=== PATIENT | male | born 1985 | race Caucasian/White ===

== ENCOUNTER 2019-03-04 21:00 | Inpatient (IN) | payer OTHER ==
[~2019-03-04] VITALS: Ht 172.7 cm; Wt 77.1 kg
--- NOTE | ~2019-03-04 | PROC ---
[facility] [address] [place] [address] PROCEDURE REPORT Name: TY GREENWOOD Room: [address] IN M.R.#: [id number] Admission: 03/04/19 Attend Phys: Babatunde Quiñones Discharge: 03/06/19 Date of : 87 Report #: [id number] THIS REPORT FOR: //name// For GI report, please see the Provation report in Perceptive 7 content. By: 1455Medical Records Staff ISRAEL /FLO
[2019-03-04 21:07] VITALS: BP 120/79
[2019-03-04 21:47] LABS: ABSOLUTE BASOPHILS 0.1 thou/uL (0.0-0.2); ABSOLUTE EOSINOPHILS 0.3 thou/uL (0.0-0.7); ABSOLUTE LYMPHOCYTES 4.9 thou/uL (0.8-5.3); ABSOLUTE MONOCYTES 1.3 thou/uL (0.0-1.2); ABSOLUTE NEUTROPHILS 7.7 thou/uL (1.6-8.1); BASOPHILS 0.8 %; HEMATOCRIT 42.7 % (42.0-52.0); LYMPHOCYTES 34.3 %; MCH 32.6 pg (26.0-34.0); MCHC 35.2 g/dL (28.0-37.0); MCV 92.8 fL (80.0-100.0); MONOCYTES 9.2 %; MPV 8.9 fl. (7.2-11.1); NUCLEATED RBCS 0 /100WBC; PLATELET COUNT* 283 thou/uL (150-400); POLYS 53.7 %; RDW-CV 12.6 % (10.5-14.5); WBC 14.3 thou/uL (4.0-11.0)
[2019-03-04 21:49] LABS: CALCIUM 10.2 mg/dL (8.5-10.1); CREATININE 1.2 mg/dL (0.6-1.3); POTASSIUM 3.9 mmol/L (3.5-5.1)
[2019-03-04 21:52] LABS: PROTIME 10.2 Seconds (9.20-11.50)
[2019-03-04 22:00] LABS: ALBUMIN 4.2 g/dL (3.4-5.0); TOTAL BILIRUBIN 0.3 mg/dL (<0.1-1.0); TOTAL PROTEIN 7.9 g/dL (6.4-8.2)
[2019-03-04 23:34] LABS: URINE BILIRUBIN NEGATIVE (Negative); URINE BLOOD NEGATIVE (Negative); URINE CLARITY SL CLOUDY; URINE COLOR YELLOW; URINE GLUCOSE-RANDOM NEGATIVE (Negative); URINE KETONES NEGATIVE (Negative); URINE LEUKOCYTES-REFLEX NEGATIVE (Negative); URINE NITRITE-REFLEX NEGATIVE (Negative); URINE PROTEIN NEGATIVE (Negative); URINE SPECIFIC GRAVITY <= 1.005 (1.005-1.030); URINE UROBILINOGEN 0.2 E.U./dl (0.2-1.0)
[2019-03-04 23:39] VITALS: BP 120/79
[2019-03-05] VITALS: BP 113/67
--- NOTE | 2019-03-05 05:59 | NUR ---
PT ARRIVED AT MIDNIGHT FROM THE ER. ALERT AND ORIENTED, VSS RA. NPO FOR ABD US IN AM. IV FLUID RUNNING ORDERED. PRN MORPHINE GIVEN FOR PAIN PER PT REQUEST. AT BEDSIDE. WILL CONTINUE TO MONITOR.
[2019-03-05 09:30] LABS: ABSOLUTE BASOPHILS 0.1 thou/uL (0.0-0.2); ABSOLUTE EOSINOPHILS 0.3 thou/uL (0.0-0.7); ABSOLUTE LYMPHOCYTES 2.8 thou/uL (0.8-5.3); ABSOLUTE MONOCYTES 1.6 thou/uL (0.0-1.2); ABSOLUTE NEUTROPHILS 6.9 thou/uL (1.6-8.1); BASOPHILS 0.6 %; EOSINOPHILS 2.9 %; HEMATOCRIT 40.6 % (42.0-52.0); LYMPHOCYTES 24.3 %; MCHC 34.5 g/dL (28.0-37.0); MCV 92.8 fL (80.0-100.0); MONOCYTES 13.5 %; NUCLEATED RBCS 0 /100WBC; PLATELET COUNT* 277 thou/uL (150-400); POLYS 58.7 %; RBC 4.38 mil/uL (4.50-6.00); RDW-CV 13.1 % (10.5-14.5); WBC 11.7 thou/uL (4.0-11.0)
[2019-03-05 09:50] LABS: ALBUMIN 3.7 g/dL (3.4-5.0); ALKALINE PHOSPHATASE 80 U/L (46-116); AMYLASE 475 U/L (25-115); ANION GAP 11 mmol/L (7-16); BUN 14 mg/dL (7-18); CALCIUM 8.6 mg/dL (8.5-10.1); CHLORIDE 104 mmol/L (98-107); CHOLESTEROL 194 mg/dL (<200); CO2 26 mmol/L (21-32); GLUCOSE 88 mg/dL (70-99); HDL CHOLESTEROL 27 mg/dL (>40); LDL CHOLESTEROL 126 mg/dL (<100); POTASSIUM 3.8 mmol/L (3.5-5.1); SERUM ASSESSMENT Clear; SGOT 19 U/L (15-37); SGPT 22 U/L (30-65); SODIUM 141 mmol/L (136-145); TC:HDL 7.2 Ratio (Not establshd); TOTAL BILIRUBIN 0.4 mg/dL (<0.1-1.0); TOTAL PROTEIN 6.9 g/dL (6.4-8.2); TRIGLYCERIDE 208 mg/dL (<150); VLDL 42 mg/dL (<40)
--- NOTE | 2019-03-05 12:50 | NUR ---
ASSUMED PT CARE AT 0700, PT A&O X4, UP AD ANA, MED SURG STATUS. PT C/O PAIN 6/10 IN CHEST AND ABDOMEN, PAIN MEDS ADMINISTERED PRIOR TO THIS NURSES ARRIVAL. PT WENT FOR US OF ABDOMEN AND THEN DIRECTLY TO SURGERY FOR EGD PER DR SEGURA'S ORDERS, CONSENT SIGNED AND PT EDUCATED ON PROCEDURE. PT MOVED TO J&S D/T MED SURG STATUS ONCE RETURNED FROM PROCEDURE. ALL OF PATIENTS BELONGINGS WERE SENT WITH PT AND PTS . HOURLY ROUNDING COMPLETED.
[2019-03-05 13:11] VITALS: BP 116/66
--- NOTE | 2019-03-05 13:13 | NUR ---
PT ARRIVED TO UNIT ABOUT 1245 FROM TELE. VITALS STABLE, CHARTED. UP AD ANA. IV PATENT, INFUSING. SPOUSE IN ROOM. AGREE WITH PREVIOUS ASSESMENT. CALL LIGHT WITHIN REACH. WILL CONTINUE TO MONITOR.
--- NOTE | 2019-03-05 13:34 | EKG ---
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
[2019-03-05 16:00] VITALS: BP 125/72
--- NOTE | 2019-03-05 17:38 | NUR ---
PT RESTING SINCE LAST NOTE. UP AD ANA. IV PATENT. TOLERATING DIET. DENIED PAIN. MINIMAL NAUSEA. VITALS STABLE. CALL LIGHT WITHIN REACH WILL CONTINUE TO MONITOR.
[2019-03-05 19:45] VITALS: BP 121/69
--- NOTE | 2019-03-05 19:45 | NUR ---
SITTING IN BED WATCHING TV. IV FLUIDS INFUSING WITHOUT DIFFICULTY. CALL LIGHT WITHIN REACH.
[2019-03-06 05:04] LABS: ALBUMIN 3.5 g/dL (3.4-5.0); CALCIUM 8.9 mg/dL (8.5-10.1); POTASSIUM 4.1 mmol/L (3.5-5.1); TOTAL BILIRUBIN 0.1 mg/dL (<0.1-1.0); TOTAL PROTEIN 6.6 g/dL (6.4-8.2)
[2019-03-06 05:06] LABS: ABSOLUTE BASOPHILS 0.1 thou/uL (0.0-0.2); ABSOLUTE EOSINOPHILS 0.4 thou/uL (0.0-0.7); ABSOLUTE LYMPHOCYTES 3.5 thou/uL (0.8-5.3); ABSOLUTE MONOCYTES 1.4 thou/uL (0.0-1.2); ABSOLUTE NEUTROPHILS 4.7 thou/uL (1.6-8.1); BASOPHILS 0.7 %; EOSINOPHILS 4.2 %; HEMATOCRIT 39.6 % (42.0-52.0); HEMOGLOBIN 13.9 gm/dL (14.0-18.0); LYMPHOCYTES 34.6 %; MCH 32.7 pg (26.0-34.0); MCHC 35.1 g/dL (28.0-37.0); MCV 93.2 fL (80.0-100.0); MONOCYTES 14.1 %; MPV 9.1 fl. (7.2-11.1); NUCLEATED RBCS 0 /100WBC; PLATELET COUNT* 273 thou/uL (150-400); POLYS 46.4 %; RBC 4.25 mil/uL (4.50-6.00); RDW-CV 13.2 % (10.5-14.5); WBC 10.1 thou/uL (4.0-11.0)
--- NOTE | 2019-03-06 06:58 | NUR ---
TOOK A SHOWER LAST NIGHT. HAD A FEMALE VISITOR LAST NIGHT. TOOK PO BENADRYL FOR COMPLAINT OF GENERALIZED ITCHING. ALSO APPLIED HYDROCORTISONE TO LOWER LEGS. NO FURTHER COMPLAINT OF ITCHING. GIVEN MORPHINE AT BEDTIME FOR COMPLAINT OF EPIGASTRIC PAIN. NO FURTHER COMPLAINT OF PAIN. RESTED QUIETLY AFTERWARDS. HOURLY ROUNDING IN PROGRESS.
[2019-03-06 07:35] VITALS: BP 110/56
[2019-03-06] MEDS ORDERED: PEPCID40 MG PO (11:29)
[2019-03-06 11:30] VITALS: BP 110/56
[2019-03-06] MEDS ORDERED: PROTONIX40 M2 PO (11:30)
[2019-03-06 12:07] VITALS: BP 110/56
--- NOTE | 2019-03-06 12:08 | NUR ---
PT GIVEN DISCHHARGE INFORMATION AND CARE NOTES. PRESCRIOPTIONS CALLED INTO PHARMACY. IV REMOVED. PT BELONGINGS GATHERED. PT LEFT AMBULATORY WITH NURSING STAFF TO HOME. FALL RISK PRECAUTIONS IN PLACE. HOURLY ROUNDING COMPLETED.
--- NOTE | 2019-03-07 10:07 | PATH ---
[facility] [address] [place] [address] PATHOLOGY RPT PROCEDURE Name: CJ CARLOS Room: [address] IN M.R.#: [id number] Admission: 03/04/19 Date of : 87 Discharge: 03/06/19 Report #: [id number] Path Case #: [id number] [facility] Accession Number: [id number] . 01 Material submitted: . PART A: small bowel - SMALL BOWEL BIOPSY PART B: stomach - ANTRAL BIOPSY PART C: esophagus - ESOPHAGEAL BIOPSY AT 38CM . 01 Clinical history: . None provided . 02 Diagnosis: A. Small bowel biopsy (possible celiac): - Mild nonspecific active duodenitis, negative for granulomas, viral inclusions, significant intraepithelial lymphocytosis and dysplasia. See comment. . B. Antral biopsy: - Mild nonspecific chronic antral gastritis, negative for Helicobacter pylori organisms, granulomas and dysplasia. . C. Esophageal biopsy at 38 cm: - Benign esophageal and glandular/columnar types mucosa with severe chronic and active inflammation compatible with reflux, negative for goblet cells/diagnostic Lara's metaplasia, granulomas, viral inclusions and dysplasia. (MAXI:anthony; 03/06/2019) S 03/06/2019 1514 Local . 02 Comment: In the small bowel biopsy (A), there is some villous flattening seen in association with active inflammation and attributable to it, however, there is no significant intraepithelial lymphocytosis and therefore celiac disease is thought to be unlikely. (MAXI:anthony; 03/06/2019) . . Special stain on B: H. pylori immuno . 02 Electronically signed: . Jean Moore MD, Pathologist NPI- [id number] . 01 Gross description: . A. Received in formalin labeled "Cj Carlos, small bowel biopsy, possible celiac," are multiple segments of kirk soft tissue measuring 1.0 x 0.4 x 0.1 cm in aggregate dimensions. [place] [address] PATHOLOGY RPT PROCEDURE Name: CJ CARLOS Room: [address] IN [facility].#: [id number] Admission: 03/04/19 Date of : 87 Discharge: 03/06/19 Report #: [id number] Path Case #: [id number] entirely submitted in cassette A1. . B. Received in formalin labeled "Cj Carlos, antral biopsy for H. pylori for erosive duodenitis," are 2 segments of kirk soft tissue measuring 0.7 x 0.3 x 0.2 cm in aggregate dimensions and ranging from 0.3 to 0.4 cm in maximum dimension. The specimen is submitted entirely in cassette B1. . C. Received in formalin labeled "Cj Carlos, esophageal biopsy at 38 cm, possible Lara's," are 3 segments of kirk soft tissue measuring 0.6 x 0.3 x 0.1 cm in aggregate dimensions and ranging from 0.1 to 0.2 cm in maximum dimension. The specimen is submitted entirely in cassette C1. (TSD; 03/05/2019) TOB/TOB 03/05/2019 2000 Local . 02 Pathologist provided ICD-10: K29.80, K29.50, K20.9 . 02 CPT . 660828, 992672, 742775, X09168 Specimen Comment: A courtesy copy of this report has been sent to Specimen Comment: [phone], . Specimen Comment: Report sent to / DR MÉNDEZ Performed at: 01 [facility] [address] [place] [address] [address], [place], [place] [id number] MD Wilbert Sanchez MD Phone: [phone] Performed at: 02 [facility] [address], [place], [place] [id number] MD Jean Moore MD Phone: [phone]
[2019-03-07 22:06] LABS: IgG 870 mg/dL (700-1600)
[2019-03-08 07:35] LABS: ANA INTERPRETATION Positive (Negative)
--- NOTE | 2019-03-09 10:43 | CON ---
[facility] [address] [place] [address] CONSULTATION Name: TY GREENWOOD Room: [address] IN M.R.#: [id number] Admission: 03/04/19 Attend Phys: Babatunde Quiñones Discharge: 03/06/19 Date of : 87 Report #: [id number] THIS REPORT FOR: //name// CC: FAM physician/PCP Val Best MD DATE OF SERVICE: 03/05/2019 REFERRING PHYSICIAN: Val Best MD The patient has no primary care provider. REASON FOR CONSULTATION: Chest and abdominal pain. IMPRESSION: 1. Chest pain and epigastric pain with history of Lara's and chronic nonsteroidal use and chronic use of antacids -- evaluate for complicated reflux and plus or minus gastric or duodenal ulceration. 2. Elevated lipase of uncertain etiology with normal-appearing pancreas on CT scan, but the patient does relate a history of pancreatitis in the past -- abdominal ultrasound was negative for gallstones and sludge and the patient denies any history of alcohol use, family history of pancreatitis or family history of autoimmune disease or hyperlipidemia. 3. History of acute lymphoblastic leukemia, for which the patient underwent -- received a stem cell transplant back in 2012 at [facility] by Dr. Alessio Celestin for the same. 4. Chronic tobaccoism with the need to discontinue the same. RECOMMENDATIONS: 1. We will proceed with upper endoscopy and a small bowel biopsy today. I have discussed these plans with the patient as well and he is agreeable to the same. 2. If his upper endoscopy is negative for source of pancreatitis and as he does not have significant hyperlipidemia or evidence of autoimmune pancreatitis by laboratory testing, we will proceed with an endoscopic ultrasound as an outpatient at [facility] as with this where we have the proper equipment to do so. This would not be done for 4 weeks or so. 3. We will make further recommendations once we have his upper endoscopy today. HISTORY OF PRESENT ILLNESS: The patient is a 33-year-old white male with history of ALL, for which he underwent stem cell transplantation about 6 years ago at [facility]. He was diagnosed with ALL and received treatment for the same under the direction of Dr. Alessio Celestin. He has done well since that time. He has had some problems off and on since that time with abdominal pain and has undergone multiple upper and lower endoscopies, but he cannot give any details of the same. He does state that his told [place] [address] CONSULTATION Name: TY GREENWOOD Room: [address] IN [facility].#: [id number] Admission: 03/04/19 Attend Phys: Babatunde Quiñones Discharge: 03/06/19 Date of : 87 Report #: [id number] of Lara's esophagus with some inflammation noted with his last examination being done over a year and a half ago in [place]. He and his are just recently moved back to [facility] [facility]. They were in [place] for family issues. He denies any complaints of any dysphagia or odynophagia, but does have problem with chronic reflux, for which he takes Tums like candy. He is not taking any prescription medications for the same. He denies any nausea, vomiting, hematemesis, melena, or hematochezia. Denied any problem with his bowels or bowel frequency. His weight is going up and down over the last year or so. He is admitted to the hospital for further evaluation and treatment. He does take Advil on a regular basis and Tums as I mentioned above. ALLERGIES: None. MEDICATIONS: As above. PAST MEDICAL HISTORY: Remarkable for ALL with history of Lara's as well and multiple upper and lower endoscopies in the past. SOCIAL HISTORY: The patient is . He does smoke cigarettes. He does not drink alcohol, maybe once a week. FAMILY HISTORY: As above. PHYSICAL EXAMINATION: GENERAL: Pleasant 33-year-old gentleman, who is in no distress. CARDIOPULMONARY: Revealed a regular rate and rhythm. LUNGS: Clear. ABDOMEN: Soft and not particularly tender. No rebound or guarding noted. LABORATORY TEST: From admission revealed a white count of 14.3, hemoglobin 15.0, platelet count 283,000. His MCV is 92.8, RDW 12.6, and MCHC is 35.2. His sodium 141, potassium 3.9, chloride 103, bicarbonate is 29, BUN 20, creatinine 1.2. His GFR is 70. Total bilirubin 0.3, alkaline phosphatase is 94, AST 21, ALT 28, albumin 4.2. Troponins negative x 2. His lipase on admission was 1684 and today is 3754. IMAGING: CT scan of the abdomen and pelvis was reviewed and was largely unremarkable. His gallbladder was contracted without evidence for any stones. Pancreas looked normal. Abdominal ultrasound performed this morning revealed mild splenomegaly and a pancreatic head and body appeared unremarkable, tail not visualized secondary to overlying bowel gas. There is no evidence for any gallstones. Common duct is 4 mm. DISCUSSION: At the present time, the patient has had some problem with epigastric pain and does have serial laboratory evidence suggestive of [facility] [address] [place] [address] CONSULTATION Name: TY GREENWOOD Ankit Room: [address] IN [facility]#: [id number] Admission: 03/04/19 Attend Phys: Babatunde Quiñones Discharge: 03/06/19 Date of : 87 Report #: [id number] pancreatitis. We will proceed with upper endoscopy today and make further recommendations thereafter. <ELECTRONICALLY SIGNED> By: Marcell Madrigal DO 03/09/19 1043 0948 [id number] Madrigal DO /nt
== END 2019-03-06 12:09 | disposition short-term general hospital (02) | DRG 383 ==
LOC: M.ERS 21:00 → M.2W 22:42 → M.TBA-ER 22:42 → M.2W 03-05 00:08 → M.ORTHSURG 03-05 12:53
PROVIDERS: Emergency Medicine; Internal Medicine; Internal Medicine Gastroenterology; ADMIT Internal Medicine
PROC: 0DB58ZX Excision of Esophagus, Via Natural or Artificial Opening Endoscopic, Diagnostic (ICD-10-PCS; principal; 2019-03-05)
PROC: 0DB98ZX Excision of Duodenum, Via Natural or Artificial Opening Endoscopic, Diagnostic (ICD-10-PCS; principal; 2019-03-05)
DX: K26.9 Duodenal ulcer, unspecified as acute or chronic, without hemorrhage or perforation (principal); K85.90 Acute pancreatitis without necrosis or infection, unspecified; K29.70 Gastritis, unspecified, without bleeding; K22.70 Barrett's esophagus without dysplasia; K74.3 Primary biliary cirrhosis; M35.00 Sjogren syndrome, unspecified; M34.1 CR(E)ST syndrome; F17.210 Nicotine dependence, cigarettes, uncomplicated; E78.00 Pure hypercholesterolemia, unspecified; K21.0 Gastro-esophageal reflux disease with esophagitis; K44.9 Diaphragmatic hernia without obstruction or gangrene; Z79.1 Long term (current) use of non-steroidal anti-inflammatories (NSAID); Z85.6 Personal history of leukemia

== ENCOUNTER → 2019-04-22 | Outpatient (CLI) | payer OTHER ==
[~2019-04-22] MED LIST: PEPCID40 MG PO; PROTONIX40 M2 PO
[2019-04-22 10:40] LABS: ABSOLUTE BASOPHILS 0.1 thou/uL (0.0-0.2); ABSOLUTE EOSINOPHILS 0.1 thou/uL (0.0-0.7); ABSOLUTE LYMPHOCYTES 3.6 thou/uL (0.8-5.3); ABSOLUTE MONOCYTES 0.9 thou/uL (0.0-1.2); ABSOLUTE NEUTROPHILS 7.7 thou/uL (1.6-8.1); BASOPHILS 1.1 %; EOSINOPHILS 1.1 %; HEMATOCRIT 44.7 % (42.0-52.0); HEMOGLOBIN 15.5 gm/dL (14.0-18.0); LYMPHOCYTES 28.8 %; MCH 32.3 pg (26.0-34.0); MCHC 34.8 g/dL (28.0-37.0); MCV 92.7 fL (80.0-100.0); MONOCYTES 7.2 %; MPV 8.4 fl. (7.2-11.1); NUCLEATED RBCS 0 /100WBC; PLATELET COUNT* 247 thou/uL (150-400); POLYS 61.8 %; RBC 4.82 mil/uL (4.50-6.00); RDW-CV 12.5 % (10.5-14.5); WBC 12.4 thou/uL (4.0-11.0)
[2019-04-22 10:50] LABS: ALBUMIN 4.4 g/dL (3.4-5.0); ALKALINE PHOSPHATASE 86 U/L (46-116); ANION GAP 10 mmol/L (7-16); BUN 18 mg/dL (7-18); CHLORIDE 104 mmol/L (98-107); CHOLESTEROL 240 mg/dL (<200); CO2 26 mmol/L (21-32); CREATININE 1.1 mg/dL (0.6-1.3); GLUCOSE 99 mg/dL (70-99); HDL CHOLESTEROL 34 mg/dL (>40); LDL CHOLESTEROL 158 mg/dL (<100); POTASSIUM 3.7 mmol/L (3.5-5.1); SGOT 30 U/L (15-37); SGPT 36 U/L (30-65); SODIUM 140 mmol/L (136-145); TC:HDL 7.1 Ratio (Not establshd); TOTAL BILIRUBIN 0.4 mg/dL (<0.1-1.0); TOTAL PROTEIN 8.2 g/dL (6.4-8.2); TRIGLYCERIDE 244 mg/dL (<150); VLDL 49 mg/dL (<40)
[2019-04-22 10:51] LABS: SERUM ASSESSMENT Clear
[2019-04-23 02:06] LABS: T7 1.9 (1.2-4.9)
== END ==
LOC: M.LAB 10:08
PROVIDERS: Family Medicine
DX: M81.0 Age-related osteoporosis without current pathological fracture (principal); M60.9 Myositis, unspecified

== ENCOUNTER → 2019-06-12 | Outpatient (CLI) | payer OTHER ==
[2019-06-12 22:06] LABS: IgA 105 mg/dL (90-386); IgM 60 mg/dL (20-172)
[2019-06-13 21:10] LABS: IgG 1063 mg/dL (700-1600)
[2019-06-14 03:06] LABS: ANA INTERPRETATION Positive (Negative); ANTI-DNA SCREEN <1 IU/mL (0-9); ANTI-SSA <0.2 AI (0.0-0.9); ANTIJO-I AB <0.2 AI (0.0-0.9)
[2019-06-14 12:12] LABS: M-SPIKE Not Observed g/dL (Not Observed)
== END ==
LOC: M.LAB 12:53
PROVIDERS: Internal Medicine Rheumatology
DX: R53.83 Other fatigue (principal); M25.50 Pain in unspecified joint; Z68.27 Body mass index [BMI] 27.0-27.9, adult